=== PATIENT | female | born 1955 | race Caucasian/White ===

== ENCOUNTER 2024-04-02 13:23 | Emergency (ER) | payer OTHER, SELFPAY ==
--- NOTE | ~2024-04-02 | CT_ITS ---
EXAMINATION: CT ABDOMEN AND PELVIS WITH CONTRAST CLINICAL INFORMATION: Vaginal/pelvic trauma. COMPARISON: None available. TECHNIQUE: Multidetector volumetric images were obtained from the superior aspect of the liver through the pubic symphysis following administration 85 mL of Omnipaque 350 intravenous contrast. Sagittal and coronal reformatted images were obtained on the technologist's workstation. Oral contrast: No This CT examination was performed using dose optimization techniques as appropriate, variously including the following: *Automated exposure control *Adjustment of mA and/or kV according to patient size (this includes techniques or standardized protocols for targeted exams where dose is matched to indication/reason for exam; i.e. extremities or head) *Use of iterative reconstruction technique DLP: 376 mGy-cm FINDINGS: LUNG BASES: Heart size is borderline enlarged. There is bibasilar scarring and/or atelectasis slightly greater on the right. LIVER, GALLBLADDER, AND BILIARY TREE: The liver is normal in size, shape, and attenuation. No focal hepatic lesion or biliary ductal dilatation is present. The gallbladder is unremarkable with no evidence of radiopaque gallstones, gallbladder wall thickening, or obvious pericholecystic inflammatory changes. PANCREAS: Unremarkable. SPLEEN: Unremarkable. ADRENAL GLANDS: Unremarkable. KIDNEYS AND URETERS: The kidneys are normal in size, shape, and attenuation. No hydronephrosis, hydroureter, or calculi seen. No perinephric stranding. BLADDER: Unremarkable. GASTROINTESTINAL TRACT: There is scattered stool, diverticula and gas in colon without distention or diverticulitis. The small bowel loops are normal caliber. Appendix is not visualized with certainty. The stomach is nondistended ABDOMINAL WALL: No significant hernia is appreciated. LYMPH NODES: Normal. VASCULAR: Unremarkable. PELVIC VISCERA: There are scattered phleboliths in the right pelvis. The uterus is likely atrophic or surgically absent. No free fluid seen. No abnormal pelvic or inguinal lymph nodes. OSSEOUS STRUCTURES: There are mild degenerative disc changes with vacuum disc phenomena at L2-3 through L5-S1 disc level. No aggressive lytic or sclerotic process seen. Bilateral L5-S1 facet joint arthropathy is noted. CT/CT abdomen pelvis w IV con IMPRESSION: 1. No acute intra-abdominal process seen. 2. Colonic diverticulosis without diverticulitis. 3. Mild constipation. 4. No acute abnormality seen in the pelvis. The uterus is likely surgically absent or atrophic. Fleischner guidelines were followed. Electronically signed by: David Serrano MD 04/02/2024 06:48 PM EDT RP
[2024-04-02 14:03] VITALS: BP 148/79; PULSE 89; RESP 16; TEMP 37; O2SAT 97; BMI 22.6
--- NOTE | 2024-04-02 14:15 | ED.GENADULT ---
HPI - General Adult General Chief complaint: Fall Stated complaint: fall-vaginal bleeding Time Seen by Provider: 04/02/24 14:18 Source: patient and family (patient's daughter) Mode of arrival: ambulatory Limitations: no limitations History of Present Illness ED Provider: Sharyn Maguire PA-C HPI narrative: Patient is a 68 year old assigned female at with no reported medical history presenting to the emergency department today with vaginal bleeding after trauma. Patient states that she was climbing over a dog and a fence when she slipped and hit her vagina against the flat part of the metal fence. Patient states that it immediately started bleeding after the incident. Patient denies any dizziness, lightheadedness, abdominal pain, nausea, vomiting, fever, chills, blurry vision, double vision, loss of vision, chest pain, difficulty breathing, shortness of breath, back pain, night sweats, pain with urination, increased urinary frequency, increased urinary urgency, syncope or a near syncopal episode, bowel incontinence, bladder incontinence, or any other complaints at this time. Onset (ago): minute(s) Relieving factors: none Exacerbating factors: none Associated symptoms: denies other symptoms Treatments prior to arrival: none Related Data Allergies Allergy/AdvReac Type Severity Reaction Status Date / Time Penicillins Allergy Hives Verified 04/02/24 14:08 Review of Systems Constitutional: Constitutional: Reports no additional constitutional complaints, Denies chills, Denies fever(s) and Denies night sweats Eyes: Eyes: Reports no additional eye complaints, Denies blurry vision, Denies change in vision, Denies diplopia, Denies eye discharge, Denies loss of vision and Denies eye pain ENT: Denies dizziness Cardiovascular: Cardiovascular: Reports no additional cardiovascular complaints, Denies chest pain, Denies lightheadedness, Denies Loss of Consciousness and Denies dyspnea Respiratory: Respiratory: Reports no additional respiratory complaints and Denies dyspnea Gastrointestinal: Gastrointestinal: Reports no additional gastrointestinal complaints, Denies abdominal pain, Denies melena, Denies hematochezia, Denies change in bowel habits and Denies change in stool character Genitourinary: Genitourinary: Denies urinary frequency, Denies dysuria, Denies urinary incontinence, Denies urinary hesitancy and Denies urinary urgency Comments: vaginal bleeding Musculoskeletal: Musculoskeletal: Reports no additional musculoskeletal complaints, Denies numbness and Denies tingling Neurologic: Denies dizziness, Denies loss of vision, Denies numbness and Denies tingling Psychiatric: Psychiatric: Reports no additional psychiatric complaints Endocrine: Endocrine: Reports no additional endocrine complaints Hematologic/Lymphatic: Hematologic/Lymphatic: Reports no additional hematologic/lymphatic complaints Allergic/Immunologic: Allergic/Immunologic: Reports no additional allergic/immunologic complaints [facility] Past Medical History Attestation statement: The following information was validated with the patient. (all information validated with the patient's daughter) Source: old records reviewed, obtained from family (patient's daughter provided additional history and confirmed the history provided by the patient) and nursing notes reviewed Social History Social History Substance Use Type: Marijuana Physical Exam ED Vital Signs: Vital Signs - 24 hr 04/02/24 14:03 04/02/24 14:23 04/02/24 14:23 Temperature 98.6 F 98 F Pulse Rate 89 84 84 Respiratory Rate 16 16 16 Blood Pressure 148/79 H 134/85 134/85 Pulse Oximetry 97 97 Oxygen Delivery Method Room Air Room Air 04/02/24 18:00 04/02/24 19:00 Temperature 97.4 F 97.4 F Pulse Rate 86 86 Respiratory Rate 12 12 Blood Pressure 119/67 119/67 Pulse Oximetry 100 100 Oxygen Delivery Method Room Air Room Air BMI result Body Mass Index 22.6 Const General: cooperative, no acute distress, alert and awake Nutritional Appearance: well nourished Orientation/consciousness: patient oriented x3 Limitations: no limitations [facility] Head: Yes normal to inspection and Yes atraumatic Ears: hearing grossly normal bilaterally and external ears normal General nose exam: Normal external nose present, no nasal discharge noted and no epistaxis Face and sinus: Yes normal facial exam, No abrasion and No laceration Mouth: Normal oral and palatal mucosa present, no drooling and no muffled voice Eyes General: appearance normal, both eyes and all related structures Periorbital: periorbital findings normal Eyelids: Yes eyelids normal Conjunctivae: conjunctivae normal Pupils: Equal, round and reactive pupils present EOM: EOMs intact bilaterally Neck Neck: Yes normal visual inspection, Yes full ROM and Yes no lymphadenopathy Chest Chest palpation & inspection: normal inspection of the chest Resp Effort & Inspection: normal respiratory effort and able to speak in complete sentences GI Inspection: Yes normal to inspection Female genitals images: 1. laceration actively oozing Neuro General: patient oriented x3 and moves all extremities Cranial nerves: Yes Equal, round and reactive pupils present Cognition (Neuro): normal cognition Extrem General: Yes normal to inspection, Yes full ROM and Yes capillary refill normal Psych Appearance: grossly normal Mental Status: mental status grossly normal Affect: normal affect Attitude: cooperative Thought process: Normal thought process present Thought content: Normal thought content present Insight: Good insight present (Psych) Course Course Course Narrative: RME: Done by EFRAIN Gutierrez. 68-year-old female presents to ED for falling and now having profuse bleeding from vagina. Patient states his climbing over a fence laceration dog and she fell hard on the fence in the pelvic area and then fell on the ground. Patient went to the bathroom so profuse blood coming from her vaginal area. Daughter can not pinpoint laceration. Patient to be brought to bed 7 in the ED. Reevaluation(s) Reevaluation #1: Patient is requesting discharge at this time, I did make patient aware that the results of her CT abdomen and pelvis remain pending at this time, imaging is being obtained to exclude deeper internal injury given her history and physical examination. She reports that she is still having small amounts of vaginal bleeding but she declines any re-examination at this time. I advised patient that she would be leaving against medical advice, she verbalized understanding of this, she was advised that she should return with any new or worsening symptoms or concerns. Time: 18:45 Reevaluation #2: CT/CT abdomen pelvis w IV con IMPRESSION: 1. No acute intra-abdominal process seen. 2. Colonic diverticulosis without diverticulitis. 3. Mild constipation. 4. No acute abnormality seen in the pelvis. The uterus is likely surgically absent or atrophic Medications Administered Discontinued Medications Generic Name Dose Route Start Last Admin Trade Name Freq PRN Reason Stop Dose Admin Diphtheria/Tetanus/Acell Pertussis 0.5 ml 04/02/24 15:41 04/02/24 15:51 Diphth,Pertus(Acell),Tet Adult 0.5 Ml Syringe IM 04/02/24 15:42 0.5 ml .ONCE ONE Administration Iohexol 85 ml 04/02/24 16:50 04/02/24 16:50 Iohexol 350 Mg/Ml 100 Ml Infus..Btl IV 04/02/24 16:51 85 ml ONCE ONE Administration Lidocaine HCl 10 ml 04/02/24 15:14 04/02/24 15:31 Lidocaine Hcl 2 % Mpf 5 Ml Vial SUBCUT 04/02/24 15:15 10 ml ONCE ONE Administration Medical Decision Making Medical Decision Making MDM Narrative: Patient is a 68 year old assigned female at with no reported medical history presenting to the emergency department today with vaginal bleeding. Patient's physical exam was as noted in the physical exam portion of this note. It was difficult to visualize the entire laceration to get an appropriate measurement. Patient's blood work was unremarkable. Patient's CT abdomen/pelvis is pending. I spoke to Dr. Younger, the OBGYN converting technician, who came down and repaired the laceration with 5 absorbable sutures. I explained my physical exam findings as well as all test results to the patient and the patient's daughter. I answered all questions asked by the patient and the patient's daughter. Patient signed out to evening HAR[facility] pending CT abd / pelvis read. Differential Diagnosis Differential Diagnoses: The differential diagnosis associated with the presentation includes Vaginal laceration Pelvic injury Pelvic trauma Admission/Observation Consideration of admission/observation: Escalation of care including admission/observation considered Patient's disposition will be determined after her CT abd/pelvis is read. Consult Healthcare Provider Management of the patient was discussed with: Firmware Test Engineer (spoke to the OBGYN as noted in the MDM Rationale portion of this note. ) Lab Data [facility] Lab Attestation statement: I reviewed the patient's lab results. My interpretation of these results are in the MDM Rationale portion of this note. 04/02/24 14:34 04/02/24 14:34 Labs: Lab Results 04/02/24 Range/Units 14:34 WBC 5.6 (4.8-10.8) X10*3/uL RBC 4.21 (4.20-5.50) X10*6/uL Hgb 13.9 (12.0-16.0) g/dl Hct 38.9 (37.0-47.0) % MCV 92.4 (80.0-98.0) fL MCH 33.0 (27.0-33.0) pg MCHC 35.7 H (31.0-35.0) g/dl RDW 13.0 (11.0-16.0) % Plt Count 299 (160-400) X10*3/uL MPV 10.9 (9.4-12.3) fL Immature Gran % (Auto) 0.2 (0.0-0.4) % Neut % (Auto) 47.1 (45-73) % Lymph % (Auto) 41.0 H (20-40) % Moca % (Auto) 8.9 (2-11) % Eos % (Auto) 2.1 (0-4) % Baso % (Auto) 0.7 (0-2) % Lymph # (Auto) 2.3 (1.2-4.9) X10*3/uL Moca # (Auto) 0.5 (0.1-1.2) X10*3/uL Eos # (Auto) 0.1 (0.0-0.4) X10*3/uL Baso # (Auto) 0.0 (0.0-0.2) X10*3/uL Abs Immat Gran (auto) 0.01 (0.00-0.03) X10*3/uL Absolute Neuts (auto) 2.7 (2.0-8.3) x10*3/uL Absolute Nucleated RBC 0.000 (0.0-0.012) X10*3/uL Nucleated RBC % (auto) 0.0 (0.0-0.2) /100WBC PT 11.5 (10.9-12.4) SEC INR 1.0 (0.9-1.1) APTT 33.1 (26.0-36.8) SEC Sodium 144 (135-145) mmol/L Potassium 4.2 (3.3-5.1) mmol/L Chloride 110 H (96-108) mmol/L Carbon Dioxide 25 (22-29) mmol/L Anion Gap 13 (12-20) BUN 17 H (9-16) mg/dL Creatinine 0.92 (0.5-1.4) mg/dL Estim Creat Clear Calc 49.8 Estimated GFR > 60 Random Glucose 94 (60-115) mg/dL Calcium 9.6 (8.4-10.2) mg/dL Total Bilirubin 0.5 (0.0-1.0) mg/dL AST 15 (5-31) U/L ALT 14 (0-31) U/L Alkaline Phosphatase 62 (39-117) U/L Total Protein 6.3 L (6.5-8.0) g/dL Albumin 4.0 (3.5-5.0) g/dL Independent Historian Clinical information obtained from an independent historian. History obtained from or confirmed by: Other (patient's daughter provided additional history and confirmed the history provided by the patient.) Discharge Plan Discharge Clinical Impression: Laceration of vagina Patient Disposition: Left Against Medical Advice Additional Instructions: As discussed, the results of your CT scan of the abdomen and pelvis are pending at this time, you are leaving against medical advice. You should return to the emergency department with any new or worsening symptoms or concerns. Interventions: ED Discharge Assessment Last Done: 04/02/24 19:00 Discharge Date/Time: 04/02/24 19:00 Print Language: Yi
[2024-04-02 14:23] VITALS: BP 134/85; PULSE 84; RESP 16; TEMP 36.6; O2SAT 97
[2024-04-02 14:38] LABS: MANUAL DIFF FLAG NO
--- NOTE | 2024-04-02 14:43 | PC.NURSE ---
Pt comes to ED today with c/o vaginal bleeding. Pt reports she was climbing over a chain linked fence with she felt pain to her vagina. She then noticed a large amount of bleeding coming from her vagina. Pain is 6/10. Pt is unclear as to when she last received a TD. 20g to LAC placed Blood lab pending. Pt will have CT w/contrast
[2024-04-02 14:50] LABS: Basophils Percent Auto 0.7 % (0-2); Eosinophils Absolute Auto 0.1 X10*3/uL (0.0-0.4); Eosinophils Percent Auto 2.1 % (0-4); Hematocrit 38.9 % (37.0-47.0); Hemoglobin 13.9 g/dl (12.0-16.0); Imm Gran Abs Auto 0.01 X10*3/uL (0.00-0.03); Imm Gran Pct Auto 0.2 % (0.0-0.4); Lymphocytes Absolute Auto 2.3 X10*3/uL (1.2-4.9); Mean Corpuscular HGB Conc 35.7 g/dl (31.0-35.0); Mean Corpuscular Volume 92.4 fL (80.0-98.0); Mean Platelet Volume 10.9 fL (9.4-12.3); Monocytes Absolute Auto 0.5 X10*3/uL (0.1-1.2); Monocytes Percent Auto 8.9 % (2-11); Neutrophils Absolute Auto 2.7 x10*3/uL (2.0-8.3); Neutrophils Percent Auto 47.1 % (45-73); Platelet Count 299 X10*3/uL (160-400); Red Blood Count 4.21 X10*6/uL (4.20-5.50); White Blood Count 5.6 X10*3/uL (4.8-10.8)
[2024-04-02 14:55] LABS: Alanine Aminotransferase 14 U/L (0-31); Alkaline Phosphatase 62 U/L (39-117); Anion Gap 13 (12-20); Aspartate Amino Transferase 15 U/L (5-31); Bilirubin Total 0.5 mg/dL (0.0-1.0); Blood Urea Nitrogen 17 mg/dL (9-16); Calcium 9.6 mg/dL (8.4-10.2); Carbon Dioxide 25 mmol/L (22-29); Chloride 110 mmol/L (96-108); Creatinine Clr Calc Pharmacy 49.8; Estimated Glomerular Filt Rate > 60; Glucose Random 94 mg/dL (60-115); Potassium 4.2 mmol/L (3.3-5.1); Sodium 144 mmol/L (135-145); Total Protein 6.3 g/dL (6.5-8.0)
[2024-04-02 15:03] LABS: Prothrombin Time 11.5 SEC (10.9-12.4)
[2024-04-02 15:05] LABS: Partial Thromboplastin Time 33.1 SEC (26.0-36.8)
[2024-04-02] MEDS: Lidocaine HCl 2 % MPF 5 ML VIAL 10 ML SUBCUT (15:31)
--- NOTE | 2024-04-02 15:31 | PC.NURSE ---
Dr. Younger at bedside for consult and suture procedure. Pt tolerated procedure well and without complication.
--- NOTE | 2024-04-02 15:35 | P.CONOB_ITS ---
IMPLEMENTATION PROJECT MANAGER - CN: HPI Data of Consult Consult date: 04/02/24 Primary Care Provider: EFRAIN Rivas Consult Narrative Narrative: I was not consulted on Amber Mina who is a 68 year old female presenting to the emergency room with perineal bleeding after trauma. Patient states that she was climbing over a dog and a fence when she slipped and hit her vagina against the flat part of the metal fence. Patient states that it immediately started bleeding after the incident. No other associated symptom cc:: CC: OB [facility] Social History Social History Smoked in Last 30 Days: Yes Use of substances other than those prescribed or required for medical reasons: Yes Substance Use Type: Marijuana Substance Use Frequency: Weekly Advance Directives: No Do you have a plan to hurt others: No Plan Meds Allergies Allergy/AdvReac Type Severity Reaction Status Date / Time Penicillins Allergy Hives Verified 04/02/24 14:08 IMPLEMENTATION PROJECT MANAGER Physical Exam Vitals Vital signs: Temp Pulse Resp BP Pulse Ox O2 Del Method 98 F 84 16 134/85 97 Room Air 04/02/24 14:23 04/02/24 14:23 04/02/24 14:23 04/02/24 14:23 04/02/24 14:23 04/02/24 14:23 BMI result Body Mass Index 22.6 Additional Comments: Right periurethral 1.5 cm laceration bleeding, intact urethra, normal vagina, normal bilateral external genitalia bilateral labia minora and majora. IMPLEMENTATION PROJECT MANAGER - Results Labs 04/02/24 14:34 04/02/24 14:34 Labs: Short CBC 04/02/24 Range/Units 14:34 WBC 5.6 (4.8-10.8) X10*3/uL Hgb 13.9 (12.0-16.0) g/dl Hct 38.9 (37.0-47.0) % Plt Count 299 (160-400) X10*3/uL BMP 04/02/24 14:34 Sodium 144 Potassium 4.2 Chloride 110 H Carbon Dioxide 25 BUN 17 H Creatinine 0.92 Calcium 9.6 Liver Function 04/02/24 Range/Units 14:34 Total Bilirubin 0.5 (0.0-1.0) mg/dL AST 15 (5-31) U/L ALT 14 (0-31) U/L Alkaline Phosphatase 62 (39-117) U/L Albumin 4.0 (3.5-5.0) g/dL Assessment and Plan (1) Laceration of vagina: Status: Acute Plan Discussed with the patient the finding on pelvic exam 1.5 cm right periclitoral laceration slightly bleeding, recommended repair of the laceration under local anesthetic. Procedure done, see procedure note Instructions given the patient to call in case of persistent or worsening pain at the site of the quaker, redness or discharge or gapping and to schedule a follow-up appointment within 2 weeks in the office. All questions answered, the patient verbalized understanding IMPLEMENTATION PROJECT MANAGER Procedures Laceration Time out performed: Yes Anesthetic: lidocaine 2% Suture: Vicryl (5.0) Repair Successful: Yes Patient tolerated procedure: well Complications: none Additional comments: Discussed with the patient the procedure, its benefits and risks including possible injury to bladder urethra, vagina rectum, bleeding possible need for blood transfusion. All questions answered, the patient verbalized understanding and signed a consent. At the end instructions given the patient to call in case of recurrence of the bleeding, discharge or redness or pain at the site of the laceration follow-up in the office within 1-2 weeks.
[2024-04-02] MEDS: Diphth,Pertus(ACell),Tet Adult 0.5 ML SYRINGE IM (15:51)
[2024-04-02] MEDS: iohexoL 350 MG/ML 100 ML INFUS..BTL 85 ML IV (16:50)
[2024-04-02 18:00] VITALS: BP 119/67; PULSE 86; RESP 12; TEMP 36.3; O2SAT 100
--- NOTE | 2024-04-02 18:57 | PC.NURSE ---
Pt requests to leave the ED at this time. Pt counselled on the the risks of leaving prior to the return of CT results. Pt verbalizes understanding of information/risks and wishes to proceed with D/C Discussed with ED provider and Pt will be d/c'd at this time.
[2024-04-02 19:00] VITALS: BP 119/67; PULSE 86; RESP 12; TEMP 36.3; O2SAT 100
== END 2024-04-02 19:00 | disposition left against medical advice (07) ==
PROVIDERS: Physician Assistant; Emergency Provider Emergency Medicine; PCP Physician Assistant
DX: S31.41XA Laceration without foreign body of vagina and vulva, initial encounter (principal); X58.XXXA Exposure to other specified factors, initial encounter; Y93.89 Activity, other specified; Y92.9 Unspecified place or not applicable; Y99.9 Unspecified external cause status; Z23 Encounter for immunization
CPT/HCPCS: 36415; 74177; 80053; 85025; 85610; 85730; 90471; 90715; 99284; J2003; Q9967

== ENCOUNTER → 2024-04-02 14:51 | Outpatient (BNV) | payer OTHER, SELFPAY | PROVIDERS: Emergency Provider Emergency Medicine; PCP Physician Assistant; Visit Provider Obstetrics & Gynecology | DX: S31.41XA Laceration without foreign body of vagina and vulva, initial encounter (principal) | CPT/HCPCS: 12001; 99283 ==